=== PATIENT | male | born 1945 | race Caucasian/White ===

== ENCOUNTER → 2021-01-04 | Outpatient (CLI) | payer MEDICARE, OTHER | LOC: COL.LAB 16:06 | DX: C61 Malignant neoplasm of prostate (principal) ==

== ENCOUNTER → 2021-01-08 | Outpatient (CLI) | payer MEDICARE, OTHER ==
--- NOTE | 2021-01-08 09:53 | NUR ---
Initial visit; Patient's upset and in [place]. Mobile Device Engineer consoled her and took her to someone who could eventually help her locate her .
== END ==
LOC: COL.RAD 08:54
DX: C61 Malignant neoplasm of prostate (principal)
CPT/HCPCS: A9503; Q9967